=== PATIENT | female | born 1955 | race Caucasian/White ===

== ENCOUNTER 2016-10-12 08:13 | Outpatient (CLI) | payer OTHER ==
[2013-12-03 20:36] VITALS: BP 147/60
== END 2016-10-12 08:14 ==
LOC: LAB 08:13
PROVIDERS: ATTEND Internal Medicine Endocrinology, Diabetes & Metabolism
DX: E11.9 Type 2 diabetes mellitus without complications (principal)
CPT/HCPCS: 36415; 80061; 83036

== ENCOUNTER 2017-02-16 08:08 | Outpatient (CLI) | payer OTHER ==
[2013-12-03 20:36] VITALS: BP 147/60
== END 2017-02-16 08:10 ==
LOC: LAB 08:08
PROVIDERS: ATTEND Internal Medicine Endocrinology, Diabetes & Metabolism
DX: E11.9 Type 2 diabetes mellitus without complications (principal)
CPT/HCPCS: 36415; 80061; 82306; 83036

== ENCOUNTER 2017-07-20 08:20 | Outpatient (CLI) | payer OTHER ==
[2013-12-03 20:36] VITALS: BP 147/60
== END 2017-07-20 08:21 ==
LOC: LAB 08:20
PROVIDERS: ATTEND Internal Medicine Endocrinology, Diabetes & Metabolism
DX: E55.9 Vitamin D deficiency, unspecified (principal); E11.9 Type 2 diabetes mellitus without complications
CPT/HCPCS: 36415; 82306; 83036

== ENCOUNTER 2017-10-05 08:00 | Outpatient (CLI) | payer OTHER ==
[2013-12-03 20:36] VITALS: BP 147/60
[2017-10-05 09:08] LABS: eGFR (African) > 60; eGFR (Non-African) > 60
== END 2017-10-05 08:02 ==
LOC: LAB 08:00
PROVIDERS: ATTEND Internal Medicine Endocrinology, Diabetes & Metabolism
DX: E11.9 Type 2 diabetes mellitus without complications (principal); E55.9 Vitamin D deficiency, unspecified
CPT/HCPCS: 36415; 80053; 80061; 82043; 82306; 83036; 84443

== ENCOUNTER 2018-10-16 08:41 | Outpatient (CLI) | payer OTHER ==
[2013-12-03 20:36] VITALS: BP 147/60
[2018-10-16 09:34] LABS: eGFR (Non-African) > 60
[2018-10-16 10:11] LABS: BASOPHILS % 0.8 % (0.0-1.5); EOSINOPHILS % 3.3 % (0.0-6.8); MEAN CORPUSCULAR HEMOGLOBIN 30.6 pg (28.0-34.0); MONOCYTES % 6.4 % (0.0-11.0); NEUTROPHILS # 5.1 # k/uL (1.4-7.7)
== END 2018-10-16 09:00 ==
LOC: LAB 08:41
PROVIDERS: ATTEND Nurse Practitioner Family
DX: E13.9 Other specified diabetes mellitus without complications (principal)
CPT/HCPCS: 36415; 80053; 82043; 82306; 83036; 83519; 84681; 85025